=== PATIENT | female | born 1995 | race Two or more races ===

== ENCOUNTER 2025-03-07 12:47 | Emergency (ER) | payer BC ==
[~2025-03-07] VITALS: Ht 157.5 cm; Wt 59.0 kg
[2025-03-07 12:47] VITALS: BP 122/80; TEMP 98.4; O2SAT 100
== END 2025-03-07 13:47 | disposition left against medical advice (07) ==
LOC: ER 12:56
DX: R10.9 Unspecified abdominal pain (principal); Z53.21 Procedure and treatment not carried out due to patient leaving prior to being seen by health care provider